=== PATIENT | female | born 1940 | race Caucasian/White ===

== ENCOUNTER → 2017-09-28 13:26 | Outpatient (CLI) | payer MEDICARE, SELFPAY ==
[2017-09-28] MEDS: DENOSUMAB 60 MG/ML ML SQ (13:34)
[2017-09-28 13:38] VITALS: BP 141/76; PULSE 68; RESP 16; TEMP 36.3; O2SAT 98; BMI 23.0
== END ==
PROVIDERS: Family Provider Internal Medicine; PCP Internal Medicine; Visit Provider Internal Medicine
DX: M81.0 Age-related osteoporosis without current pathological fracture (principal)
CPT/HCPCS: 96372

== ENCOUNTER → 2017-11-22 14:02 | Outpatient (CLI) | payer MEDICARE, SELFPAY ==
--- NOTE | 2017-11-22 14:05 | BI_ITS ---
MAMMOGRAPHY - BILATERAL SCREENING REASON FOR EXAM: Female, 77 years old. Routine annual screening examination. PERTINENT HISTORY: Mother with breast cancer. TECHNIQUE: Digital bilateral breast shaka (3D mammographic acquisition) in the CC and MLO projections. 2-D mediolateral oblique (MLO) and craniocaudad (CC) views of both breasts were obtained. CAD: Full Field Digital Mammography with Computer Added Detection was performed. COMPARISON: Comparison is made with prior study dated November 16, 2016 and November 16, 2015. FINDINGS: Breast Composition: There are scattered areas of fibroglandular density. There are no dominant masses or suspicious calcifications. Stable appearance of the diffuse bilateral benign-appearing calcifications. Several of these calcifications appear to be dermal in nature. No other significant abnormalities are identified. There has been no significant change since the prior study. BI/SCREENING MAMM (CAD), BILAT IMPRESSION: Stable bilateral screening mammogram. Yearly follow-up mammogram recommended. (A) ASSESSMENT CATEGORY: BIRADS Category 2: Benign. A letter regarding these results will be sent to the patient by the facility within 30 days. Approximately 10% of breast cancers are not detected by mammography. A normal mammogram should not delay biopsy of a clinically suspicious abnormality. [id number] Electronically Signed: Ravi Elliott MD at 15:39 EDT Tel [phone], Service support ,
== END ==
PROVIDERS: Family Provider Internal Medicine; PCP Internal Medicine; Visit Provider Internal Medicine
DX: Z12.31 Encounter for screening mammogram for malignant neoplasm of breast (principal)
CPT/HCPCS: 77063; 77067

== ENCOUNTER 2017-12-25 15:23 | Emergency (ER) | payer MEDICARE, SELFPAY ==
[2017-12-25 15:23] VITALS: BP 72/39; PULSE 61; RESP 18; TEMP 36.6; O2SAT 98; BMI 23.9
--- NOTE | 2017-12-25 15:41 | EKG12_ITS ---
Test Reason : LOW BLOOD PRESSURE Blood Pressure : / mmHG Vent. Rate : 048 BPM Atrial Rate : 048 BPM P-R Int : 160 ms QRS Dur : 090 ms QT Int : 454 ms P-R-T Axes : 058 046 048 degrees QTc Int : 405 ms Sinus bradycardia Otherwise normal ECG Confirmed by AME BOBBY, MORGAN ([id number]), manager editorial KERRI HEADLEY ([id number]) on 12/28/2017 9:07:07 AM Referred By: ADEN Confirmed By:MORGAN MCCLOUD MD
--- NOTE | 2017-12-25 15:41 | RAD_ITS ---
STUDY: X-RAY CHEST REASON FOR EXAM: Female, 77 years old. Shortness of breath. TECHNIQUE: Portable frontal AP COMPARISON: July 04, 2010 FINDINGS: There is no new focal consolidation. Normal size heart. Normal mediastinum and ozzie. Normal visualized pulmonary arteries. Normal visualized aortic arch and descending thoracic aorta. Normal visualized thoracic spine. Normal visualized ribs, clavicles, and shoulders. There is no demonstrated abnormality of the visualized soft tissue structures of the upper abdomen. RAD/Chest 1 View (Portable) IMPRESSION: No acute cardiopulmonary process. Electronically Signed: Malena Holt MD at 21:51 EDT Tel , Service support ,
--- NOTE | 2017-12-25 15:45 | ED.VISSUMM ---
- ER Visit Summary Date of Service: 12/25/17 Chief Complaint: Weakness History of Present Illness: The patient is a 77 F with weakness for a few days, today she felt like she was going to faint. She was found to be hypotensive. She recently had a urinary tract infection and was treated with antibiotics. She has no cough, denies any fever. No abdominal pain. She denies any neck pain, headache or vision changes. Physical Examination: Not appear in acute distress. She is comfortable sitting in a wheelchair in the waiting room. Dry mucous membranes, no obvious facial deformity No C-spine tenderness supple neck. Regular rate and rhythm without any obvious murmurs Clear lungs bilaterally speaking in full sentences without any obvious respiratory distress Abdomen soft and nontender no guarding or rebound Moves all extremities without any difficulty or pain. Skin does not show any obvious rashes or lesions, no trauma. Alert oriented ?3 with no gross focal deficit Emergency Department Course and Treatment: Patient is found to have a normal white count, normal blood work. After IV fluids she is significantly improved her blood pressure is now back to baseline. She ambulated around the emergency department, she stood up and her blood pressure was normal while standing up. She no longer feels dizzy. The etiology is likely volume, she did say she does not drink much at all and her confirmed this. I had a long discussion with them, if she even begins to start feeling dizzy again she needs to return for reevaluation. Disposition: Discharged in stable condition Impression: Hypovolemia resolved This note was generated with [employer] dictation software. It may contain incorrect words, spelling, and punctuation that were not noted in review of the chart prior to signing ED Disposition - Plan for ED Patient: Disposition: Home or Assisted Living Chief Complaint: Hypotension Instructions: ED Hypotension Orthostatic Referrals: Nadia Jonas DO [Primary Care Provider] - 3-5 Days
[2017-12-25 15:57] LABS: Absolute Lymphocyte Count 1.61 X10^3/ul (0.83-4.51); Absolute Neutrophil Count 4.1 X10^3/uL (2.0-7.7); Basophil# 0.03 X10^3/uL; Basophil% 0.5 % (0-1); Eosinophil# 0.13 X10^3/uL; Hematocrit 39.1 % (37-47); Lymphocyte # 1.61 X10^3/ul (4.0); Lymphocyte % 24.9 % (19-41); Mean Corp Hgb Conc 33.2 g/gl (32-36); Mean Corpuscular Hgb 31.3 pg (27.0-32.0); Mean Platelet Vol. 9.6 fl (6.2-12.0); Monocyte# 0.55 X10^3/uL; Monocyte% 8.5 % (0-10); Neutrophil # 4.13 X10^3/uL (2.7-7.7); Neutrophil % 63.9 % (47-70); POSITIVE COUNT NO; POSITIVE DIFFERENTIAL NO; POSITIVE MORPHOLOGY NO; Platelet Count 220 K/mm3 (150-450); RBC Distribution Width CV 12.3 % (11.6-14.6); RBC Distribution Width SD 41.3 fl (35.1-43.9); Red Blood Count 4.16 M/mm3 (4.2-5.4); White Blood Count 6.5 K/mm3 (4.4-11.0)
[2017-12-25 16:08] LABS: ALB/GLOB Ratio 1.1 RATIO (0.9-2.4); AST(SGOT) 16 U/L (15-37); Alanine Aminotransfer ALT/SGPT 9 U/L (13-56); Albumin, Serum 3.6 g/dL (3.2-5.0); Alkaline Phosphatase 40 U/L (45-117); Anion Gap 7 (5-15); BUN 15 mg/dL (7-18); Calcium,Total 9.2 mg/dL (8.5-10.1); Chloride 103 mmol/L (98-107); EST Glomerular Filtration Rate 57 mL/min (>60); Est Glom Filt Rate - Afr Amer 69 mL/min (>60); Estimated Creatinine Clearance 37.85 ml/min; Globulin 3.3 g/dL (2.2-4.2); Glucose 100 mg/dL (74-106); Potassium 4.3 mmol/L (3.5-5.1); Protein, Total 6.9 g/dL (6.4-8.2); Sodium Level 140 mmol/L (136-145)
[2017-12-25 16:13] LABS: Partial Thromboplast Time 28.8 Seconds (24.1-36.2); Prothrombin Time (Protime)PT. 13.3 SECONDS (11.7-14.9)
[2017-12-25 16:15] LABS: Lactic Acid 0.8 mmol/L (0.4-2.0)
[2017-12-25 16:32] VITALS: BP 118/71; PULSE 55; RESP 13; O2SAT 96
[2017-12-25] MEDS: 0.9% Normal Saline 1,000 ML IV.SOLN. 1800 ML IV (16:36)
[2017-12-25 16:41] VITALS: BP 118/71; PULSE 50; RESP 16
[2017-12-25 17:25] VITALS: BP 130/57; PULSE 91; RESP 16; TEMP 36.4; O2SAT 100
[2017-12-25 17:35] LABS: Bacteria 0 SEEN /hpf (None Seen); Mucous, Urine 0 SEEN /hpf (<or=2+); Red Blood Cells-Urine 0 SEEN /hpf (0-5); White Blood Cells 0 SEEN /hpf (0-5)
[2017-12-25 17:45] LABS: Color, Urine Yellow (Yellow); Glucose, Dipstick Normal (Normal); Ketone-Dipstick 5 mg/dl (Negative); Leukocyte Esterase-Dipstick Negative /ul (Negative); Nitrite-Dipstick Negative (Negative); Occult Blood-Urine Negative /ul (Negative); Protein-Dipstick 15 mg/dl (Negative); Urine Bilirubin Dipstick Negative (Negative); Urine Clarity Sl. Cloudy (Clear); Urine Urobilinogen Normal (Normal)
[2017-12-25 17:55] LABS: Amorphous Sediment 1+ URATE; Squamous Epithelial Cells - UA 0-5 SEEN /hpf (5-10)
[2017-12-25 19:22] VITALS: BP 116/94; PULSE 80; RESP 18; O2SAT 100
== END 2017-12-25 19:30 | disposition home or self-care (01) ==
PROVIDERS: Emergency Provider Emergency Medicine; Family Provider Internal Medicine; PCP Internal Medicine
DX: E86.1 Hypovolemia (principal); I10 Essential (primary) hypertension; E11.9 Type 2 diabetes mellitus without complications; G20 Parkinson's disease; Z79.82 Long term (current) use of aspirin; Z79.899 Other long term (current) drug therapy
CPT/HCPCS: 71045; 80053; 81001; 83605; 85025; 85610; 85730; 87040; 87086; 87088; 93005; 99284; J7030; A4216

== ENCOUNTER → 2018-09-09 08:51 | Outpatient (CLI) | payer MEDICARE, SELFPAY ==
[2018-09-09 09:09] VITALS: BP 101/44; PULSE 66; RESP 16; TEMP 36.3; O2SAT 98; BMI 24.7
[2018-09-09] MEDS: DENOSUMAB 60 MG/ML ML SQ (09:24)
== END ==
PROVIDERS: Family Provider Internal Medicine; PCP Internal Medicine; Referring Provider Internal Medicine; Visit Provider Internal Medicine
DX: M81.0 Age-related osteoporosis without current pathological fracture (principal)
CPT/HCPCS: 96372; J0897

== ENCOUNTER → 2018-11-26 | Outpatient (CLI) | payer MEDICARE, SELFPAY ==
[2018-09-09 09:09] VITALS: BMI 24.7
--- NOTE | 2018-11-26 14:48 | BI_ITS ---
MAMMOGRAPHY - BILATERAL SCREENING REASON FOR EXAM: Female, 78 years old. Routine annual screening examination. PERTINENT HISTORY: Mother with breast cancer. TECHNIQUE: Digital bilateral breast shaka (3D mammographic acquisition) in the CC and MLO projections. 2-D mediolateral oblique (MLO) and craniocaudad (CC) views of both breasts were obtained. CAD: Full Field Digital Mammography with Computer Added Detection was performed. COMPARISON: Comparison is made with prior study dated November 22, 2017 and November 16, 2016. FINDINGS: Breast Composition: There are scattered areas of fibroglandular density. There are no dominant masses or suspicious calcifications. Stable appearance of the diffuse bilateral benign-appearing calcifications. Most of these appear to be dermal in nature. No other significant abnormalities are identified. There has been no significant change since the prior study. BI/SCREENING MAMM (CAD), BILAT IMPRESSION: Stable bilateral screening mammogram. Yearly follow-up mammogram recommended. (A) ASSESSMENT CATEGORY: BIRADS Category 2: Benign. A letter regarding these results will be sent to the patient by the facility within 30 days. Approximately 10% of breast cancers are not detected by mammography. A normal mammogram should not delay biopsy of a clinically suspicious abnormality. [id number] Electronically Signed: Ravi Elliott, at 9:00 EDT , Service support ,
--- NOTE | 2018-11-26 14:49 | BD_ITS ---
STUDY: DUAL ENERGY X-RAY ABSORPTIOMETRY / DXA REASON FOR EXAM: Female, 78 years old. The patient is postmenopausal. Loss of height. TECHNIQUE: Bone Mineral Density (BMD) measurements of lumbar spine and bilateral hips were obtained. COMPARISON: Comparison is made with prior study dated November 16, 2015. FINDINGS: Lumbar Spine (L1-L4): g/cm2 (1.058) / T-score (-0.9) / Z-score (0.9) Findings are suggestive of normal bone density with a low fracture risk. Left Femur Total: g/cm2 (0.783) / T-score (-1.8) / Z-score (0.1) Left Femoral Neck: g/cm2 (0.792) / T-score (-1.8) / Z-score (0.2) Right Femur Total: g/cm2 (0.721) / T-score (-2.3) / Z-score (-0.4) Right Femoral Neck: g/cm2 (0.784) / T-score (-1.8) / Z-score (0.2) The T-Scores on the most recent prior examination were: Lumbar Spine (L1-L4): There has been improvement of bone density since the previous examination. Left Femur Total: which represents an improvement of 0.8%. Right Femur Total: which represents no significant change. . BD/Dexa Bone Density Study IMPRESSION: The patient is considered as outlined below according to World Earnest Organization (WHO) criteria with a fracture risk. There has been of bone density since the previous examination. Reference Information: The T-score is the number of standard deviations above or below the standard which is normal for young adults at their peak bone mineral density. The World Health Organization (WHO) interprets the T-scores as follows: Above -1 Normal bone density Between -1 and -2.5 Osteopenia Equal to / or below -2.5 Osteoporosis As a practical clinical guideline, osteopenia may be graded as follows: Mild -1 through -1.5 Moderate -1.6 through -2.0 Severe -2.1 through -2.4 The Z-score is the number of standard deviations above or below age-matched controls. A Z-score of less than -1.5 would be considered abnormal. References: 1. NIH Osteoporosis and Related Bone Diseases http://www.osteo.org 2. International Society for Clinical Densitometry http://www.iscd.org 3. National Osteoporosis Foundation http://www.nof.org Electronically Signed: Ravi Elliott, at 15:52 EDT , Service support ,
== END | disposition home or self-care (01) ==
PROVIDERS: Family Provider Internal Medicine; PCP Internal Medicine; Visit Provider Internal Medicine
DX: Z78.0 Asymptomatic menopausal state (principal); Z12.31 Encounter for screening mammogram for malignant neoplasm of breast
CPT/HCPCS: 77063; 77067; 77080

== ENCOUNTER → 2019-05-07 | Outpatient (CLI) | payer MEDICARE, SELFPAY ==
[2019-04-01 15:06] VITALS: BMI 23.3
--- NOTE | 2019-05-07 09:36 | ECHOCS_ITS ---
Reason For Study: Murmur Procedure This was a 2D Doppler, Color Flow transthoracic echocardiogram. The study was technically difficult. Contrast injection was performed. Exam performed in department. Left Ventricle Normal LV size. Sigmoid septum. Left ventricular systolic function is hyperdynamic. The estimated ejection fraction is 75 %. Diastolic function is indeterminate. No regional wall motion abnormalities noted. Right Ventricle Normal RV size. Normal systolic function. Atria Normal left atrium. Normal right atrium. No doppler evidence for ASD. Mitral Valve There is no mitral annular calcification. Normal mitral valve. Mild (1+) mitral valve insufficiency. Tricuspid Valve Normal tricuspid valve. Trivial tricuspid valve insufficiency. Right ventricular systolic pressure estimated to be 24 mmHg. Aortic Valve Trisinus/trileaflet aortic valve. Mild focal aortic valve thickening. Mild focal aortic valve calcification. Aortic sclerosis, no stenosis. Pulmonic Valve The pulmonic valve is not well visualized. Great Vessels Normal sized aortic root. Pericardium/Pleural No pericardial effusion. Medication 22 gauge I.V. with prn adaptor inserted into left arm. Diluted definity 2ml given slow IV push to enhance endocardial definition. MMode/2D Measurements & Calculations LVIDd: 4.0 cm IVSd: 0.96 cm LVOT diam: 2.0 cm LVIDs: 2.0 cm LVPWd: 1.1 cm FS: 48.5 % LVOT area: 3.0 cm2 Ao root diam: 3.4 cm LAV(MOD-bp): 47.9 ml LA A4 area: 14.5 cm2 LAV(MOD-bp) Indexed: 30.6 ml/m2 LAV(MOD-sp2): 44.1 ml LAV(MOD-sp4): 40.7 ml RA A4 area: 15.2 cm2 Time Measurements MV dec time: 0.25 sec Doppler Measurements & Calculations MV E max richy: 95.9 cm/sec Lat Peak E' Richy: 5.5 cm/sec Med Peak E' Richy: 6.2 cm/sec MV A max richy: 110.6 cm/sec E/E' lat: 17.5 E/E' med: 15.5 MV E/A: 0.87 MV V2 max: 127.1 cm/sec MV P1/2t max richy: 128.1 cm/sec Ao V2 max: 141.2 cm/sec MV max P.5 mmHg MV P1/2t: 71.7 msec Ao max P.0 mmHg MV V2 mean: 69.4 cm/sec MV dec slope: 523.0 cm/sec2 ILANA(V,D): 2.3 cm2 MV mean P.3 mmHg MV V2 VTI: 37.8 cm MVA(P1/2t): 3.1 cm2 LV V1 max: 109.3 cm/sec PA V2 max: 86.7 cm/sec TR max richy: 229.0 cm/sec LV V1 max P.8 mmHg TR max P.0 mmHg Interpretation Summary The study was technically difficult. Contrast injection was performed. Left ventricular systolic function is hyperdynamic. The estimated ejection fraction is 75 %. Sigmoid septum. Mild (1+) mitral valve insufficiency. Trivial tricuspid valve insufficiency. Aortic sclerosis, no stenosis. Right ventricular systolic pressure estimated to be 24 mmHg. Diastolic function is indeterminate. Ordering Physician: Vishnu Hilario Referring Physician: Nadia Jonas M.D. Performed By: Jaime Lynn RCS
== END | disposition home or self-care (01) ==
LOC: CVS 09:35
PROVIDERS: Family Provider Internal Medicine; PCP Internal Medicine; Referring Provider Internal Medicine Cardiovascular Disease; Visit Provider Internal Medicine Cardiovascular Disease
DX: I25.10 Atherosclerotic heart disease of native coronary artery without angina pectoris (principal)
CPT/HCPCS: 93306; Q9957; A4216; C8929

== ENCOUNTER → 2019-08-13 13:01 | Outpatient (CLI) | payer MEDICARE, SELFPAY ==
[2019-04-01 15:06] VITALS: BMI 23.3
--- NOTE | 2019-08-13 13:30 | SP.MBSS_ITS ---
PRIMARY / SECONDARY DIAGNOSIS: dysphagia (R13.10) REFERRING PHYSICIAN: Kathy Calderón CURRENT DIET: regular textures, thin liquids DENTITION: WFL MENTAL STATUS: sufficient for participation RESPIRATORY STATUS: O2 via room air REASON FOR REFERRAL: The Patient is a 78 year old female referred for a modified barium swallow (MBS) study to objectively assess the Patients oropharyngeal swallow function under fluoroscopy secondary to the diagnosis of Parkinson?s disease; reported transient difficulties with onset of swallow earlier this month while eating breakfast. MEDICAL HISTORY: Parkinson?s disease, status post coronary artery stent placement, status post coronary angioplasty implant and graft, atherosclerosis of coronary artery of [place] heart without angina pectoris, essential (primary) hypertension, hyperlipidemia, status post cholecystectomy, status post appendectomy PREVIOUS MODIFIED BARIUM SWALLOW STUDY: None ADDITIONAL OBJECTIVE ASSESSMENT RESULTS: None ASSESSMENT PARAMETERS: The Patient participated in a Modified Barium Swallow (MBS) study on 08/13/2019. This study was recorded in the lateral view and images were sent to PACs for storage. Scoring was completed through each trial using the 8- point Penetration-Aspiration Scale (PAS) and summarized via the Videofluoroscopic Dysphagia Scale (VDS) and the Bolus Residue Scale (BRS), with severity scoring through the Dysphagia Severity Rating Scale (DSRS) and the Swallowing Performance Scale (SPS), and recommended diet textures through the International Dysphagia Diet Standardisation Initiative (IDDSI) RESULTS OF THE EVALUATION: The Patient presents with mild oropharyngeal dysphagia (DSRS: 2; SPS: 3) with transient shallow penetration during ingestion of thin liquids (chin tuck), likely attributed to the diagnosis of Parkinson?s disease with secondary presbyphagia. OBJECTIVE ASSESSMENT OF SWALLOW FUNCTION (QUANTITATIVE ? PER TRIAL): PENETRATION / ASPIRATION SCALE (COLEMAN): 1 = does not enter airway 2 = enters airway/above vocal folds/ejected 3 = enters airway/above vocal folds/not ejected 4 = enters airway/contacts vocal folds/ejected 5 = enters airway/contacts vocal folds/not ejected 6 = enters airway/below vocal folds/ejected 7 = enters airway/below vocal folds/not ejected despite effort 8 = enters airway/below vocal folds/no effort PENETRATION / ASPIRATION SCALE (SCORE): Thin liquid - 5 mL tsp.: 1 Thin liquids via cup (sequential swallows): 1 Thin liquids via cup (single sip): 1 Thin liquids via cup (single sip): 1 Thin liquids via cup (single sip): 1 Thin liquids via straw (single sip): 1 Thin liquids via straw (sequential swallows): 1 Pudding via spoon: 1 Regular textured cookie: 1 Thin liquids via straw (sequential swallows): 1 Thin liquids via straw (chin tuck): 2 Thin liquids via straw (chin tuck): 2 Thin liquids via straw (chin tuck): 1 OBJECTIVE ASSESSMENT OF SWALLOW FUNCTION (QUANTITATIVE ? AGGREGATE): VIDEOFLOROSCOPIC DYSPHAGIA SCALE (VDS): LIP CLOSURE: 0 (of 4) Intact BOLUS FORMATION: 0 (of 6) Intact MASTICATION: 0 (of 8) Intact APRAXIA: 0 (of 4.5) None TONGUE TO PALATE CONTACT: 0 (of 10) Intact PREMATURE BOLUS LOSS: 1.5 (of 4.5) <10% ORAL TRANSIT TIME: 0 (of 3) < 1.5s TRIGGERING OF PHARYNGEAL SWALLOW: 0 (of 4.5) Normal VALLECULAR RESIDUE: 6 (of 6) >50% LARYNGEAL ELEVATION: 0 (of 9) Normal PYRIFORM SINUS RESIDUE: 4.5 (of 13.5) <10% COATING OF PHARYNGEAL WALL: 0 (of 9) No PHARYNGEAL TRANSIT TIME: 0 (of 6) <1.0s ASPIRATION: 0 (of 12) None BOLUS RESIDUE SCALE (BRS): 2 (of 6) residue in valleculae OBJECTIVE ASSESSMENT OF SWALLOW FUNCTION (SEVERITY GRADING): DYSPHAGIA SEVERITY RATING SCALE (DSRS): 2 (mild) SWALLOWING PERFORMANCE SCALE (SPS): 3 (mild) OBJECTIVE ASSESSMENT OF SWALLOW FUNCTION (QUALITATIVE): ORAL PREPARATORY PHASE: competent bolus manipulation without fragmented swallowing (piecemeal deglutition); sufficient anterior oral containment during oral manipulation; preserved management of breathing / bolus formation ORAL TRANSITIONAL PHASE: sufficient bolus transportation; no lingual discoordination (no tremor / undulations); intermittent fragmented swallowing (piecemeal deglutition); sufficient oral clearance; intermittent premature posterior bolus loss with liquids. PHARYNGEAL PHASE: mild intermittent pharyngeal phase dyssynchrony without a significant functional influence; appropriate hyolaryngeal excursion and laryngeal vestibule closure / pressure; mild pharyngeal dysmotility with consolidation within the vallecula with thicker / solid viscosities; no signs of velopharyngeal insufficiency ESOPHAGEAL PHASE: no obvious esophageal phase abnormalities observed. RESPONSE TO STRATEGIES: all deficits managed successfully with reduction in bolus rate / volume adjustments; insufficient effects noted during execution of the chin tuck posture. INTERVENTION RECOMMENDATIONS AND CONSIDERATIONS: The Patient was able to comprehend information presented upon review and express recommended intake precautions (reduced bolus volume) to suggest high likelihood of compliance. 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 POST ASSESSMENT EDUCATION: Results and recommendations were discussed with the Patient immediately following MBS completion, with the Patient verbalizing understanding and agreement with all recommendations and education provided. Discussed the effects of xerostomia and the potential for transient issues with bolus motility particularly in the morning with an underlying mild neurogenic dysphagia, which is the most likely causal factor for her reported transient dysphagia symptoms given the current findings. DIET TEXTURE RECOMMENDATIONS: Will recommend a regular textured (IDDSI: 7), thin liquid diet (IDDSI: 0) diet RECOMMENDED COMPENSATORY STRATEGIES: Reduced bolus volume / rate of ingestion, liquid chaser at reasonable intervals, seated upright at 90 degrees during PO intake, remain upright for 30-60 minutes post meal (GERD precaution) IMAGE COUNT: [id number] Mike Georges M.A., [employer] DEAN, CBIS MBSImP Certified, LSVT Certified [facility] Speech-Language Pathology Department [email or web address]
== END ==
PROVIDERS: PCP Internal Medicine; Referring Provider Nurse Practitioner Gerontology; Visit Provider Nurse Practitioner Gerontology
DX: R13.10 Dysphagia, unspecified (principal)
CPT/HCPCS: 76000; 92611

== ENCOUNTER → 2019-08-18 08:14 | Outpatient (CLI) | payer MEDICARE, SELFPAY ==
[2019-04-01 15:06] VITALS: BMI 23.3
--- NOTE | 2019-08-18 08:15 | RAD_ITS ---
STUDY: X-RAY - ESOPHAGUS (BARIUM SWALLOW) WITH FLUOROSCOPY REASON FOR EXAM: Female, 78 years old. Was unable to swallow solids and liquids, patient stated felt as if it got stuck in throat. Patient has Parkinson''s disease. TECHNIQUE: 17 view(s) of the esophagus were obtained following swallowing of barium. FLUOROSCOPY TIME (if supplied): (1:14) minutes/seconds COMPARISON: None. FINDINGS: There is no demonstrated esophageal foreign body. There is no demonstrated stricture or mucosal abnormality. There is a small hiatal hernia of the fundus of the stomach. The patient was unable to swallow the 12 mm tablet of barium. There is atherosclerotic calcification of the aortic arch with tortuosity of the descending aorta. Normal visualized pulmonary parenchyma. There are diffuse degenerative changes of the visualized thoracic spine. RAD/Esophagus Single Contrast IMPRESSION: Small hiatal hernia. Electronically Signed: Ravi Elliott, at 12:23 EST , Service support ,
== END ==
PROVIDERS: PCP Internal Medicine; Referring Provider Nurse Practitioner Gerontology; Visit Provider Nurse Practitioner Gerontology
DX: R13.10 Dysphagia, unspecified (principal)
CPT/HCPCS: 74220